=== PATIENT | male | born 1950 | race Two or more races ===

== ENCOUNTER 2023-04-21 15:08 | Inpatient (IN) | payer OTHER, MEDICAID ==
[~2023-04-21] VITALS: Ht 172.7 cm; Wt 46.0 kg
[2023-04-21 16:56] LABS: Basophils # (auto) 0 10 ^3/uL (0-0.2); Basophils % (auto) 0.5 % (0.0-2.0); Eosinophils # (auto) 0.3 10 ^3/uL (0-0.8); Eosinophils % (auto) 3.2 % (0.0-7.0); Hemoglobin 13.2 g/dL (13.5-17.5); Lymphocytes # (auto) 1.7 10 ^3/uL (0.4-5.4); Lymphocytes % (auto) 18.6 % (10.0-50.0); Mean Corpuscular Hemoglobin 28.8 pg (28.0-32.0); Mean Corpuscular Hgb Conc. 32.2 g/dL (32.0-36.0); Mean Corpuscular Volume 89.5 fL (80.0-100.0); Monocytes # (auto) 0.5 10 ^3/uL (0-1.3); Monocytes % (auto) 5.5 % (0.0-12.0); Neutrophils # (auto) 6.8 10 ^3/uL (1.6-8.6); Neutrophils % (auto) 72.2 % (37.0-80.0); Nucleated Red Blood Cells % 0.1 %; Red Blood Cells 4.58 10^6/uL (4.5-5.90); White Blood Cell 9.3 10^3/uL (4.4-10.8)
[2023-04-21 17:13] LABS: INR 1.1 (0.9-1.15); Partial Thromboplastin Time 26.4 SEC (24.5-34.5); Prothrombin Time 11.5 sec (9.3-11.8)
[2023-04-21 17:15] LABS: Albumin 4.1 g/dL (3.4-5.0); Calcium 9.5 mg/dL (8.5-10.1); Magnesium 2.1 mg/dL (1.6-2.6); Potassium 4.5 mmol/L (3.5-5.1)
[2023-04-21 17:18] LABS: BUN/Creatinine Ratio 18.6 (10.0-20.0); Bilirubin, Total 0.5 mg/dL (0.2-1.0); Total Protein 8.3 g/dL (6.4-8.2)
[2023-04-21] MEDS ORDERED: LACTATED RINGER'S 1,000 ML IV ONE (19:00)
[2023-04-21 22:47] VITALS: PULSE 78; RESP 15; O2SAT 99
[2023-04-22] MEDS ORDERED: D5W/SOD CHLO 0.9% 1,000 ML IV SCH (00:45)
[2023-04-22] MEDS ORDERED: CLINIMIX PER PHARMACY 0 ML IV SCH (00:45)
[2023-04-22] MEDS ORDERED: PPN PER PHARMACY 0 ML IV SCH (00:45)
[2023-04-22] MEDS ORDERED: ACETAMINOPHEN 325 MG TAB PO PRN (00:45)
[2023-04-22] MEDS ORDERED: ONDANSETRON HCL 4 MG/2 ML VIAL IV PRN (00:45)
[2023-04-22] MEDS ORDERED: DEXTROSE (50%) 50ML SYRG IV PRN (00:45)
[2023-04-22 01:48] LABS: Urine Bacteria FEW /hpf (None Seen); Urine Blood Negative /uL (Negative); Urine Clarity HAZY (Clear); Urine Color Yellow (Yellow); Urine Hyaline Cast FEW /lpf (0 - 2); Urine Mucus FEW (None Seen); Urine Protein, UAD TRACE (Negative); Urine Specific Gravity 1.022 (1.001-1.035); Urine Urobilinogen Normal (Negative); Urine WBC 5 /hpf (0 - 3)
[2023-04-22] MEDS: ACCU-CHEK COMFORT CURVE STRIP VI SCH ×3 (05:40→18:02)
[2023-04-22] MEDS: InsuLIN REG 1unit/0.01ml Soln (100units/ml) SC SCH ×3 (05:41→18:00)
[2023-04-22] MEDS: CARBIDOPA W LEVODOPA 25/100mg TABLET PO SCH ×2 (07:09→16:15)
[2023-04-22 07:44] LABS: Albumin 3.7 g/dL (3.4-5.0); Magnesium 1.8 mg/dL (1.6-2.6); Potassium 4.2 mmol/L (3.5-5.1)
[2023-04-22 07:49] LABS: BUN/Creatinine Ratio 22.6 (10.0-20.0); Bilirubin, Total 0.5 mg/dL (0.2-1.0); Phosphorus 2.7 mg/dL (2.5-4.90); Total Protein 7.6 g/dL (6.4-8.2)
[2023-04-22 08:15] VITALS: PULSE 82; RESP 17; O2SAT 97
[2023-04-22] MEDS ORDERED: CLOPIDOGREL BISULFATE 75 MG TAB PO SCH (10:00)
[2023-04-22] MEDS ORDERED: levETIRAcetam 500 MG/5ML ORAL SOLN UD PO SCH (10:00)
[2023-04-22] MEDS ORDERED: FLUoxetine HCL 20 MG CAP PO SCH (10:00)
[2023-04-22] MEDS ORDERED: PANTOPRAZOLE 40 MG/10 ML VIAL INJ IV SCH (10:00)
[2023-04-22 14:02] VITALS: BP 164/90; PULSE 99; RESP 17; TEMP 98.7; O2SAT 97
[2023-04-22] MEDS ORDERED: CLOP75TA70 PO (14:12)
[2023-04-22] MEDS ORDERED: METF-370 PO (14:12)
[2023-04-22] MEDS ORDERED: ATOR40TA52 PO (14:12)
[2023-04-22] MEDS ORDERED: TROS20TA3 PO (14:12)
[2023-04-22] MEDS ORDERED: CARV6.2551 PO (14:12)
[2023-04-22] MEDS ORDERED: CHOL20002 PO (14:12)
[2023-04-22] MEDS ORDERED: FLUO10TA18 PO (14:12)
[2023-04-22] MEDS ORDERED: LEVE1TAB38 PO (14:12)
[2023-04-22] MEDS ORDERED: TAMS0.4C36 PO (14:12)
[2023-04-22] MEDS ORDERED: DONE5TAB80 PO (14:12)
[2023-04-22] MEDS ORDERED: CARB-112 PO (14:57)
[2023-04-22] MEDS ORDERED: CARB-118 PO (15:18)
[2023-04-22 15:30] VITALS: BP 149/83; PULSE 69; RESP 18; TEMP 97.7; O2SAT 94
[2023-04-22 17:30] VITALS: RESP 16
[2023-04-22] MEDS ORDERED: TAMSULOSIN HYDROCHLORIDE 0.4 MG CAP PO SCH (18:00)
[2023-04-22] MEDS ORDERED: ATORVASTATIN 20 MG TAB PO SCH (22:00)
[2023-04-22] MEDS ORDERED: DONEPEZIL HYDROCHLORIDE 5 MG TAB PO SCH (22:00)
== END 2023-04-22 19:40 | disposition hospice, home (50) | DRG 640 ==
LOC: ER 15:08 → OVERFLOW 04-22 00:48 → CENTRAL 04-22 10:03
PROVIDERS: ADMIT Internal Medicine; ATTEND Internal Medicine
DX: R62.7 Adult failure to thrive (principal); N17.0 Acute kidney failure with tubular necrosis; E46 Unspecified protein-calorie malnutrition; R64 Cachexia; Z68.1 Body mass index [BMI] 19.9 or less, adult; E86.0 Dehydration; F02.A0 Dementia in other diseases classified elsewhere, mild, without behavioral disturbance, psychotic disturbance, mood disturbance, and anxiety; G20 Parkinson's disease; E11.9 Type 2 diabetes mellitus without complications; E78.5 Hyperlipidemia, unspecified; I69.30 Unspecified sequelae of cerebral infarction; Z51.5 Encounter for palliative care
CPT/HCPCS: 36415; 70450; 71045; 74176; 80053; 81001; 82962; 83735; 83880; 84100; 84478; 84484; 85025; 85379; 85610; 85730; 93005; 96360; 96361; C9113; G0378; J1815